=== PATIENT | female | born 2000 | race African-American/Black ===

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

== ENCOUNTER 2020-07-08 19:45 | Emergency (ER) | payer SELFPAY ==
[~2020-07-08] VITALS: Ht 154.9 cm; Wt 79.4 kg
[~2020-07-08 19:45] MED LIST changes: +ANTI-ITCH28 G1 TP; +BACTRIM DS TAB1 EAC1 ORAL; +CEPHALEXIN500 MG ORAL; +IBUPROFEN600 MG ORAL; +NKM
--- NOTE | 2020-07-08 19:50 | NUR ---
ED Nurse Note: ambulated from home c/o abdominal cramping 8/10 x 1 year. 9 weeks . denies bleeding, nvd. reports soft stool. patient ao4. no acute distress. changed into gown; attached to monitor. vitals stable.
[2020-07-08 20:00] VITALS: BP 108/71
--- NOTE | 2020-07-08 20:00 | NUR ---
ED Nurse Note: IV access established. blood and urine collected; sent down to lab.US tech at bedside for imaging.
[2020-07-08 20:31] LABS: APPEARANCE,URINE SLIGHTLY CLOUDY; BILIRUBIN, URINE NEGATIVE (NEGATIVE); GLUCOSE, URINE (UA) NEGATIVE (NEGATIVE); KETONES,URINE 1+ (NEGATIVE); LEUKOCYTE ESTERASE ,URINE 2+ (NEGATIVE); NITRITE,URINE NEGATIVE (NEGATIVE); PH,URINE 5 (4.5-8.0); PROTEIN,URINE NEGATIVE (NEGATIVE); UROBILINOGEN,URINE NORMAL MG/DL (0.0-1.0)
[2020-07-08 20:35] LABS: COLOR,URINE YELLOW
[2020-07-08 20:38] LABS: BASOPHILS % (AUTO) 1.4 % (0.0-2.0); EOSINOPHILS % (AUTO) 0.9 % (0.0-3.0); HEMATOCRIT 36.6 % (37.0-47.0); LYMPHOCYTES % (AUTO) 25.1 % (20.0-45.0); MEAN CORPUSCULAR VOLUME 88 FL (80-99); MONOCYTES % (AUTO) 8.8 % (1.0-10.0); NEUTROPHILS % (AUTO) 63.9 % (45.0-75.0); PLATELET COUNT 281 K/UL (150-450); RED BLOOD COUNT 4.18 M/UL (4.20-5.40); RED CELL DISTRIBUTION WIDTH 11.8 % (11.6-14.8); WHITE BLOOD COUNT 9.9 K/UL (4.8-10.8)
[2020-07-08 20:43] LABS: ANION GAP 10 mmol/L (5-15); BLOOD UREA NITROGEN 8 mg/dL (7-18); CALCIUM 9.2 MG/DL (8.5-10.1); CARBON DIOXIDE 25 MMOL/L (21-32); CHLORIDE 105 MMOL/L (98-107); CREATININE 0.9 MG/DL (0.55-1.30); POTASSIUM 3.6 MMOL/L (3.5-5.1); SODIUM 140 MMOL/L (136-145)
[2020-07-08 20:48] LABS: ALANINE AMINOTRANSFERASE 18 U/L (12-78); ALBUMIN 3.8 G/DL (3.4-5.0); ALBUMIN/GLOBULIN RATIO 0.9 (1.0-2.7); ALKALINE PHOSPHATASE 72 U/L (46-116); ASPARTATE AMINO TRANSFERASE 21 U/L (15-37); BILIRUBIN,TOTAL 0.4 MG/DL (0.2-1.0)
--- NOTE | 2020-07-08 20:59 | Diagnostic Imaging Report ---
EXAM: US Pelvis Transabdominal, transvaginal CLINICAL HISTORY: ABD PAIN TECHNIQUE: Real-time transabdominal and transvaginal pelvic ultrasound with image documentation. COMPARISON: No relevant prior studies available. FINDINGS: Uterus/cervix: Cervix is closed and measures about 2.4 cm in length. The uterus measures about 8.9 x 4.5 cm. Normal endometrial stripe thickness. No myometrial mass. Right ovary: Right ovary measures about 2.6 x 1.5 x 1.9 cm. Normal blood flow. Left ovary: Left ovary is not seen. Free fluid: No free fluid. Bladder: Unremarkable as visualized. Wall is normal thickness for degree of distention. Other findings: 1.37 mm intrauterine gestational sac without yolk sac or embryo, corresponds to gestational age of 5 weeks 2 days. IMPRESSION: 1.37 mm intrauterine gestational sac without yolk sac or embryo, corresponds to gestational age of 5 weeks 2 days. Recommend continued followup with serial beta hCG and pelvic ultrasound.
--- NOTE | 2020-07-08 21:00 | Diagnostic Imaging Report ---
EXAM: US Pelvis Transabdominal and Transvaginal CLINICAL HISTORY: ABD PAIN TECHNIQUE: Real-time transabdominal and transvaginal pelvic ultrasound with image documentation. COMPARISON: No relevant prior studies available. FINDINGS: Uterus/cervix: Cervix is closed and measures about 2.4 cm in length. The uterus measures about 8.9 x 4.5 cm. Normal endometrial stripe thickness. 1.37 mm intrauterine gestational sac without yolk sac or embryo, corresponds to gestational age of 5 weeks 2 days. Right ovary: Right ovary measures about 2.6 x 1.5 x 1.9 cm. Normal blood flow. Left ovary: Left ovary is not seen. Free fluid: No free fluid. IMPRESSION: 1.37 mm intrauterine gestational sac without yolk sac or embryo, corresponds to gestational age of 5 weeks 2 days. Recommend continued followup with serial beta hCG and pelvic ultrasound.
[2020-07-08 22:00] VITALS: BP 126/76
--- NOTE | 2020-07-08 22:34 | Emergency Room Report ---
History of Present Illness General Chief Complaint: Abdominal Pain Source: Patient Present Illness HPI The patient states that she believes she is 9 weeks . She is not sure on her dates. She has seen an GEAR AND SPLINE GRINDER who did do a bedside ultrasound stating that she could not really tell how far along she was. She states that she has had ongoing suprapubic cramping. She denies vaginal bleeding. She denies dysuria hematuria. She denies fever chills. She denies nausea or vomiting. She denies abnormal vaginal discharge. She states she does not understand why she has a lot of cramping. She has no other complaints. Allergies: Coded Allergies: No Known Allergies (Unverified , 05/19/16) COVID-19 Screening Contact w/high risk pt: No Experienced COVID-19 symptoms?: No COVID-19 Testing performed HAND FUNNEL COATER: No Patient History Past Medical History: none Past Surgical History: none Social History: Denies: smoking, alcohol use, drug use Reviewed Nursing Documentation: PMH: Agreed; PSxH: Agreed Review of Systems All Other Systems: negative except mentioned in HPI Physical Exam Vital Signs Date Time Temp Pulse Resp B/P (MAP) Pulse Ox O2 Delivery O2 Flow Rate FiO2 07/08/20 19:48 95.5 82 18 108/71 (83) 98 Room Air Sp02 EP Interpretation: reviewed, normal General Appearance: no apparent distress, alert, GCS 15, non-toxic Head: normocephalic, atraumatic Eyes: bilateral eye normal inspection, bilateral eye PERRL ENT: hearing grossly normal, normal pharynx, no angioedema, normal voice Neck: full range of motion, supple/symm/no masses Respiratory: no respiratory distress, no retraction, no accessory muscle use, speaking full sentences Gastrointestinal: normal bowel sounds, non tender, soft, non-distended, no guarding, no rebound Rectal: deferred Musculoskeletal: back normal, normal range of motion, gait/station normal, non- tender Neurologic: alert, motor strength/tone normal, oriented x3, sensory intact, responsive, speech normal Psychiatric: judgement/insight normal, memory normal, mood/affect normal, no suicidal/homicidal ideation Skin: no rash, normal color Medical Decision Making Diagnostic Impression: Primary Impression: Pelvic pain affecting in first trimester, antepartum ER Course This patient dates are off. The patient ultrasound is consistent with a 5-week . hCG is also consistent with this. Either this is a demise or the patient states her often she is in very early . Regardless, the patient is well-appearing overall nontoxic. There is no evidence of ectopic. Laboratory work-up is benign. Patient does have an GEAR AND SPLINE GRINDER she can follow-up closely with. She is educated to follow-up with her GEAR AND SPLINE GRINDER in 72 hours for repeat evaluation. She is given the results of her ultrasound and her laboratory findings. There is no emergency medical condition identified. She is given close return precautions and follow-up instructions. Laboratory Tests Test 07/08/20 20:00 White Blood Count 9.9 K/UL (4.8-10.8) Red Blood Count 4.18 M/UL (4.20-5.40) L Hemoglobin 12.0 G/DL (12.0-16.0) Hematocrit 36.6 % (37.0-47.0) L Mean Corpuscular Volume 88 FL (80-99) Mean Corpuscular Hemoglobin 28.6 PG (27.0-31.0) Mean Corpuscular Hemoglobin Concent 32.7 G/DL (32.0-36.0) Red Cell Distribution Width 11.8 % (11.6-14.8) Platelet Count 281 K/UL (150-450) Mean Platelet Volume 5.6 FL (6.5-10.1) L Neutrophils (%) (Auto) 63.9 % (45.0-75.0) Lymphocytes (%) (Auto) 25.1 % (20.0-45.0) Monocytes (%) (Auto) 8.8 % (1.0-10.0) Eosinophils (%) (Auto) 0.9 % (0.0-3.0) Basophils (%) (Auto) 1.4 % (0.0-2.0) Urine Color Yellow Urine Appearance Slightly cloudy Urine pH 5 (4.5-8.0) Urine Specific [place] 1.025 (1.005-1.035) Urine Protein Negative (NEGATIVE) Urine Glucose (UA) Negative (NEGATIVE) Urine Ketones 1+ (NEGATIVE) H Urine Blood 3+ (NEGATIVE) H Urine Nitrite Negative (NEGATIVE) Urine Bilirubin Negative (NEGATIVE) Urine Urobilinogen Normal MG/DL (0.0-1.0) Urine Leukocyte Esterase 2+ (NEGATIVE) H Urine RBC 2-4 /HPF (0 - 2) H Urine WBC 5-10 /HPF (0 - 2) H Urine Squamous Epithelial Cells Many /LPF (NONE/OCC) H Urine Bacteria Moderate /HPF (NONE) H Sodium Level 140 MMOL/L (136-145) Potassium Level 3.6 MMOL/L (3.5-5.1) Chloride Level 105 MMOL/L (98-107) Carbon Dioxide Level 25 MMOL/L (21-32) Anion Gap 10 mmol/L (5-15) Blood Urea Nitrogen 8 mg/dL (7-18) Creatinine 0.9 MG/DL (0.55-1.30) Estimated Glomerular Filtration Rate > 60 mL/min (>60) Glucose Level 94 MG/DL (74-106) Calcium Level 9.2 MG/DL (8.5-10.1) Total Bilirubin 0.4 MG/DL (0.2-1.0) Aspartate Amino Transferase (AST) 21 U/L (15-37) Alanine Aminotransferase (ALT) 18 U/L (12-78) Alkaline Phosphatase 72 U/L (46-116) Total Protein 7.9 G/DL (6.4-8.2) Albumin 3.8 G/DL (3.4-5.0) Globulin 4.1 g/dL Albumin/Globulin Ratio 0.9 (1.0-2.7) L Human Chorionic Gonadotropin, Quant 41910 mIU/mL (1-6) H CT/MRI/US Diagnostic Results CT/MRI/US Diagnostic Results : Imaging Test Ordered: Pelvic US Impression 1.37 mm intrauterine gestational sac without yolk sac or embryo. Corresponds to 5 weeks 2 days. See official report in the electronic medical record. Last Vital Signs Date Time Temp Pulse Resp B/P (MAP) Pulse Ox O2 Delivery O2 Flow Rate FiO2 07/08/20 20:00 95.5 82 18 108/71 98 Room Air Status: improved Disposition: HOME, SELF-CARE Condition: Improved Referrals: NON PHYSICIAN (PCP) Patient Instructions: Abdominal Pain During Ginger Barnes DO Jul 08, 2020 22:34
[2020-07-08 22:40] VITALS: BP 126/76
--- NOTE | 2020-07-08 22:41 | NUR ---
ER DISCHARGE NOTE: Patient is cleared to be discharged per ERMD, pt is aox4, on room air, with stable vital signs. pt was given dc instructions, pt was able to verbalize understanding, pt id band and iv site removed without complications. pt is able to ambulate with steady gait. pt took all belongings.
== END 2020-07-08 22:40 | disposition home or self-care (01) ==
LOC: EMR 20:32
DX: O26.891 Other specified pregnancy related conditions, first trimester (principal); R10.2 Pelvic and perineal pain; Z3A.01 Less than 8 weeks gestation of pregnancy
CPT/HCPCS: 36415; 76830; 76856; 80053; 81003; 84702; 85025; 86850; 86900; 86901; 87086; 96360; 99284; J7030

== ENCOUNTER 2020-11-11 13:59 | Emergency (ER) | payer MEDICAID ==
[~2020-11-11] VITALS: Ht 154.9 cm; Wt 86.2 kg
--- NOTE | 2020-11-11 14:39 | NUR ---
ED Nurse Note:pt. is 23 weeks , came with abdominal pain, no vaginal bleeding, blood and urine sent to labs, pt. went to abd U/S
[2020-11-11] MEDS: Acetaminophen 500mg (ES) tab ORAL ONE (14:41)
[2020-11-11 15:12] LABS: ANION GAP 11 mmol/L (5-15); APPEARANCE,URINE SLIGHTLY CLOUDY; BASOPHILS % (AUTO) 0.7 % (0.0-2.0); BILIRUBIN, URINE NEGATIVE (NEGATIVE); BLOOD UREA NITROGEN 6 mg/dL (7-18); CALCIUM 8.9 MG/DL (8.5-10.1); CARBON DIOXIDE 23 MMOL/L (21-32); CHLORIDE 103 MMOL/L (98-107); COLOR,URINE PALE YELLOW; CREATININE 0.6 MG/DL (0.55-1.30); EOSINOPHILS % (AUTO) 0.6 % (0.0-3.0); GLUCOSE, URINE (UA) NEGATIVE (NEGATIVE); HEMATOCRIT 34.1 % (37.0-47.0); HEMOGLOBIN 11.4 G/DL (12.0-16.0); KETONES,URINE NEGATIVE (NEGATIVE); LEUKOCYTE ESTERASE ,URINE 2+ (NEGATIVE); LYMPHOCYTES % (AUTO) 8.3 % (20.0-45.0); MEAN CORPUSCULAR VOLUME 90 FL (80-99); MONOCYTES % (AUTO) 9.8 % (1.0-10.0); NEUTROPHILS % (AUTO) 80.7 % (45.0-75.0); NITRITE,URINE NEGATIVE (NEGATIVE); PH,URINE 7 (4.5-8.0); PLATELET COUNT 263 K/UL (150-450); POTASSIUM 3.6 MMOL/L (3.5-5.1); PROTEIN,URINE NEGATIVE (NEGATIVE); RED CELL DISTRIBUTION WIDTH 12.2 % (11.6-14.8); SODIUM 136 MMOL/L (136-145); UROBILINOGEN,URINE NORMAL MG/DL (0.0-1.0); WHITE BLOOD COUNT 11.9 K/UL (4.8-10.8)
[2020-11-11 15:13] LABS: INR 0.9 (0.9-1.1)
[2020-11-11 15:16] LABS: ALANINE AMINOTRANSFERASE 30 U/L (12-78); ALBUMIN/GLOBULIN RATIO 0.7 (1.0-2.7); ALKALINE PHOSPHATASE 86 U/L (46-116); ASPARTATE AMINO TRANSFERASE 19 U/L (15-37); BILIRUBIN,TOTAL 0.4 MG/DL (0.2-1.0)
--- NOTE | 2020-11-11 15:40 | Emergency Room Report ---
History of Present Illness General Chief Complaint: Complications Source: Patient Present Illness HPI 20-year-old female who is 23 weeks and is here complaining of 2 days of suprapubic pain on both sides rating a 5 out of 10 with urinary frequency and urgency. Denies any nausea vomiting diarrhea. Denies any chest pain shortness of breath. Denies being sexually active in the past few weeks. Denies any vaginal bleeding or spotting. Denies any vaginal discharge. Has not taken medication for symptom relief. Last BARGE HAND was 3 weeks ago all within normal limits. Compliant with taking vitamins. Denies tobacco smoke, drug use, alcohol intake. Allergies: Coded Allergies: No Known Allergies (Unverified , 05/19/16) COVID-19 Screening Contact w/high risk pt: No Experienced COVID-19 symptoms?: No COVID-19 Testing performed SERVICE CREW LEADER: No Patient History Past Medical History: see triage record Past Surgical History: none Pertinent Family History: none Last Menstrual Period: december 2019 23 weeks Now: Yes : 1 Para: 1 Immunizations: UTD Reviewed Nursing Documentation: PMH: Agreed; PSxH: Agreed Nursing Documentation-PMH Past Medical History: No History, Except For Review of Systems All Other Systems: negative except mentioned in HPI Physical Exam Vital Signs Date Time Temp Pulse Resp B/P (MAP) Pulse Ox O2 Delivery O2 Flow Rate FiO2 11/11/20 14:11 98.2 105 18 109/75 (86) 100 Room Air Sp02 EP Interpretation: reviewed, normal General Appearance: no apparent distress, alert, GCS 15, non-toxic Head: normocephalic, atraumatic Eyes: bilateral eye normal inspection, bilateral eye PERRL ENT: normal ENT inspection, hearing grossly normal, EOM grossly intact, normal pharynx Neck: full range of motion, supple/symm/no masses Respiratory: lungs clear, no rhonchi Cardiovascular #1: regular rate, rhythm, no edema, no murmur Cardiovascular #2: 2+ carotid (R), 2+ carotid (L), 2+ radial (R), 2+ radial (L), 2+ dorsalis pedis (R), 2+ dorsalis pedis (L) Gastrointestinal: non tender, soft, no organomegaly, other - gravid Rectal: deferred Genitourinary: no CVA tenderness Musculoskeletal: back normal Neurologic: alert, motor strength/tone normal, oriented x3, sensory intact, responsive, speech normal Psychiatric: judgement/insight normal, memory normal, mood/affect normal, no suicidal/homicidal ideation Skin: no rash Lymphatic: no adenopathy Medical Decision Making PA Attestation All my diagnosis and treatment plans were reviewed ad discussed with my supervising physician Dr. Abebe Diagnostic Impression: Primary Impression: UTI in ER Course 20-year-old female who is 23 weeks and is here complaining of 2 days of suprapubic pain on both sides rating a 5 out of 10 with urinary frequency and urgency. Denies any nausea vomiting diarrhea. Denies any chest pain shortness of breath. Denies being sexually active in the past few weeks. Denies any vaginal bleeding or spotting. Denies any vaginal discharge. Has not taken medication for symptom relief. Last BARGE HAND was 3 weeks ago all within normal limits. Compliant with taking vitamins. Denies tobacco smoke, drug use, alcohol intake. Ddx considered but are not limited to: Ectopic , threatened , spontaneous , UTI during , pyelonephritis during , urinary incontinence, prolapsed bladder Vital signs: are WNL, pt. is afebrile H&PE are most consistent with: UTI urine ORDERS: UA, urine cx, hCG quantitative, CBC, CMP, PT PTT, type and screen, OB ultrasound, Keflex ED INTERVENTIONS: Tylenol DISCHARGE: At this time pt. is stable for d/c to home. Will provide printed patient care instructions, and any necessary prescriptions. Care plan and follow up instructions have been discussed with the patient prior to discharge. Patient take medication as directed, follow-up with BARGE HAND in 24 to 48 hours, if worsening symptoms return to the emergency room CT/MRI/US Diagnostic Results CT/MRI/US Diagnostic Results : Imaging Test Ordered: ob US Impression Findings: There is a single live intrauterine . Position is transverse. There is positive heart activity, heart rate 159 bpm. Amniotic fluid index is 13.1 cm. The placenta is anterior, clears the internal cervical os. Cervix is closed, endocervical canal measuring 4.2 cm. Estimated gestational age by average of ultrasound measurements is 23 weeks 4 days. Estimated gestational age by dates is 31 weeks. Estimated date of delivery is 03/06/2021. When compared to the prior study, interim growth is appropriate. Detailed assessment of anatomy not performed, due to emergent nature of exam. No gross anomalies are demonstrated. Normal four-chamber heart and urinary bladder and spine are demonstrated. Neither ovary could be demonstrated. There is no free cul-de-sac fluid Impression: 23 week 4 day, by average ultrasound measurements, single live intrauterine . No unusual features Last Vital Signs Date Time Temp Pulse Resp B/P (MAP) Pulse Ox O2 Delivery O2 Flow Rate FiO2 11/11/20 15:16 98.3 11/11/20 14:11 105 18 109/75 (86) 100 Room Air Disposition: HOME, SELF-CARE Condition: Stable Scripts Cephalexin* (KEFLEX*) 500 Mg Capsule 500 MG ORAL EVERY 12 HOURS for 7 Days, #14 CAP 0 Refills Prov: Kevin Mcleod 11/11/20 Referrals: NOT CHOSEN IPA/,REFERRING (PCP) Patient Instructions: and Urinary Tract Infection Additional Instructions: Take medication as directed, follow with your BARGE HAND in 24 to 48 hours, if worsening symptoms return to the emergency room Kevin Mcleod Nov 11, 2020 15:40
[2020-11-11] MEDS ORDERED: CEPHALEXIN500 MG ORAL (15:41)
[2020-11-11 15:43] VITALS: BP 110/76
[2020-11-11 15:45] VITALS: BP 110/76
--- NOTE | 2020-11-11 15:45 | NUR ---
ER DISCHARGE NOTE: Patient is cleared to be discharged per ERMD, pt is aox4, on room air, with stable vital signs. pt was given dc and prescription instructions, pt was able to verbalize understanding, pt id band and iv site removed without complications. pt is able to ambulate with steady gait. pt took all belongings.
--- NOTE | 2020-11-11 16:45 | Diagnostic Imaging Report ---
Indication: Pelvic pain, 23 weeks Technique: Transabdominal and transvaginal images of the uterus and fetus Comparison: 07/08/2020 Findings: There is a single live intrauterine . Position is transverse. There is positive heart activity, heart rate 159 bpm. Amniotic fluid index is 13.1 cm. The placenta is anterior, clears the internal cervical os. Cervix is closed, endocervical canal measuring 4.2 cm. Estimated gestational age by average of ultrasound measurements is 23 weeks 4 days. Estimated gestational age by dates is 31 weeks. Estimated date of delivery is 03/06/2021. When compared to the prior study, interim growth is appropriate. Detailed assessment of anatomy not performed, due to emergent nature of exam. No gross anomalies are demonstrated. Normal four-chamber heart and urinary bladder and spine are demonstrated. Neither ovary could be demonstrated. There is no free cul-de-sac fluid Impression: 23 week 4 day, by average ultrasound measurements, single live intrauterine . No unusual features
== END 2020-11-11 15:45 | disposition home or self-care (01) ==
LOC: EMR 14:33
DX: O23.42 Unspecified infection of urinary tract in pregnancy, second trimester (principal); Z3A.23 23 weeks gestation of pregnancy
CPT/HCPCS: 36415; 76805; 76817; 80053; 80307; 81003; 84702; 85025; 85610; 85730; 86850; 86900; 86901; 87086; Z7502; 99284